=== PATIENT | male | born 1960 | race Caucasian/White ===

== ENCOUNTER 2021-10-07 14:17 | Emergency (ER) | payer MEDICARE, OTHER ==
[~2021-10-07] VITALS: Ht 177.8 cm; Wt 108.9 kg
[2021-10-07 15:03] VITALS: BP 128/77
== END 2021-10-07 16:04 | disposition home or self-care (01) ==
LOC: ER 14:17
DX: M72.2 Plantar fascial fibromatosis (principal); I10 Essential (primary) hypertension; E11.9 Type 2 diabetes mellitus without complications; E78.5 Hyperlipidemia, unspecified
CPT/HCPCS: 73630

== ENCOUNTER 2024-05-05 07:50 | Emergency (ER) | payer OTHER ==
[~2024-05-05] VITALS: Ht 177.8 cm; Wt 97.4 kg
[2024-05-05 08:42] VITALS: BP 142/88; PULSE 88; RESP 18; TEMP 98.6; O2SAT 98
[2024-05-05] MEDS: HYDROcodone-ACET 5/325MG TAB PO ONE (09:22)
[2024-05-05] MEDS ORDERED: LIDO5DIS21 TOP (11:07)
[2024-05-05] MEDS ORDERED: HYDR-4902 PO (11:07)
== END 2024-05-05 11:15 | disposition home or self-care (01) ==
LOC: ER 07:50
DX: G89.29 Other chronic pain (principal); M54.89 Other dorsalgia; E11.9 Type 2 diabetes mellitus without complications; E78.5 Hyperlipidemia, unspecified; I10 Essential (primary) hypertension; Z79.891 Long term (current) use of opiate analgesic; Z79.899 Other long term (current) drug therapy